=== PATIENT | male | born 1940 | race Caucasian/White ===

== ENCOUNTER 2017-06-19 05:11 | Day surgery (SDC) | payer MEDICARE, OTHER ==
[2017-06-15 14:14] LABS: HEMATOCRIT 43.8 % (42.0-54.0); HEMOGLOBIN 14.8 g/dL (13.5-17.5); MCH 32.5 pg (26.0-34.0); MCHC 33.8 g/dL (31.0-37.0); MCV 96.1 fL (80.0-100.0); MEAN PLATELET VOLUME 10.3 fL (7.4-10.4); RBC 4.56 10x6/uL (4.20-6.10); RDW 13.6 % (11.5-14.5)
[2017-06-15 14:22] LABS: CALCIUM 9.7 mg/dL (8.5-10.1); CARBON DIOXIDE 28.5 mmol/L (21.0-32.0); CREATININE - SERUM 1.7 mg/dL (0.6-1.3); POTASSIUM - SERUM 4.5 mmol/L (3.5-5.1)
[~2017-06-19 05:11] MED LIST: ASPIRIN EC81 M1 PO; HYZAAR 100-12.51 TAB PO
[2017-06-19 10:58] VITALS: BP 156/64; BMI 29.2
[2017-06-19] MEDS ORDERED: HYDROCODONE-APA1 TAB PO (14:36)
--- NOTE | 2017-06-19 14:47 | NUR ---
PT ARRIVED INTO PACU WITH VACOMYCIN 1MG IN 250NS HANGING PER ADRIANO.
--- NOTE | 2017-06-19 16:46 | OP ---
PATIENT NAME: LEANNE GORDON MEDICAL RECORD: [id number] :39 [facility] ADMISSION DATE: SURGEON: WAI KOENIG, BRITTNEY CAMPOS DATE OF OPERATION: 06/19/2017 PREOPERATIVE DIAGNOSES: 1. Rotator cuff tear of the left shoulder. 2. Impingement syndrome of the left shoulder. 3. Acromioclavicular arthritis of the left shoulder. POSTOPERATIVE DIAGNOSES: 1. Rotator cuff tear of the left shoulder. 2. Impingement syndrome of the left shoulder. 3. Acromioclavicular arthritis of the left shoulder. PROCEDURES: 1. Arthroscopic rotator cuff repair. 2. Arthroscopic distal clavicle excision done through separate incision -- 1 cm. 3. Arthroscopic subacromial decompression, acromioplasty and bursectomy. SURGEON: Brittney Carreno MD ANESTHESIA: General. INTRAOPERATIVE COMPLICATIONS: None. SUMMARY OF PATHOLOGIC FINDINGS: Consistent with the preoperative MRI, the patient had a full-thickness rotator cuff tear, downward sloping acromion with excoriation of the coracoacromial ligament as well as acromioclavicular arthritis. The patient did have some in situ biceps tendinitis; however, biceps tenodesis was not done. OPERATIVE SUMMARY IN DETAIL: After obtaining the appropriate preoperative orthopedic surgery consent as well as anesthetic consultation, evaluation and clearance, the patient was brought to the operating room and placed on the operating table in supine position. After general laryngeal mask was administered, the patient was placed in a right lateral decubitus position. All pressure points were well padded to include down leg peroneal nerve pad as well as axillary roll. The patient was held firmly to the operating table using the vacuum pack suction system. Left upper extremity and shoulder were then prepped and draped in a routine sterile fashion. The arm was held in the [employer] traction boom at 30 degrees of forward flexion, 30 degrees of abduction, 10 pounds of traction laterally. The arthroscopy was established in the glenohumeral joint from a posterior portal. Anterior portal was established in the anterior safe interval. Diagnostic arthroscopy did reveal the above findings. Attention was turned to the rotator cuff tear. Transrotator cuff portal was created. Rotator cuff footprint was decorticated and fibers of the torn rotator cuff were taken down with the arthroscopic resector. Having completed this, attention was turned to the subacromial space. While in the subacromial space, the [place] tissue ablation system was utilized to denude the undersurface of the acromion of all soft tissue elements. A 5-0 barrel bur was then used to perform acromioplasty at the level of acromioclavicular joint and then a 5-0 barrel bur was also used to perform a complete distal clavicle excision done through a separate incision for 1 cm. Having completed this, OPERATIVE REPORT [id number] LEANNE GORDON attention was then returned to the rotator cuff. Further decortication was carried out by further debridement of nonviable-appearing rotator cuff fibers. A #2 FiberTape was placed in an inverted mattress style fashion and then anchored laterally using a 5.5 SwiveLock from [employer]. Having completed this, arthroscopy portals were closed in a routine interrupted fashion using 4-0 Prolene. Sterile dressings were applied. The patient was awakened and taken to the recovery room in stable condition. All final needle and sponge counts were correct. TRANSINT:[id number] Voice Confirmation ID: [id number] DOCUMENT ID: [id number] WAI KOENIG, BRITTNEY CAMPOS at 1646 CC: [id number] DICTATION DATE: 06/19/17 1436 RV REPAIRER: 06/19/17 1619 [facility] 06/19/17 [id number] [place] [id number]
== END 2017-06-19 16:33 | disposition home or self-care (01) ==
LOC: D.OPS 05:11 → D.PAN 12:30 → D.OPS 16:33
PROVIDERS: Orthopaedic Surgery
DX: M75.102 Unspecified rotator cuff tear or rupture of left shoulder, not specified as traumatic (principal); M25.812 Other specified joint disorders, left shoulder; M19.012 Primary osteoarthritis, left shoulder; I10 Essential (primary) hypertension; Z01.812 Encounter for preprocedural laboratory examination

== ENCOUNTER → 2017-09-12 08:41 | Outpatient (CLI) | payer MEDICARE, OTHER ==
[~2017-09-12 08:41] MED LIST changes: +HYDROCODONE-APA1 TAB PO
== END | disposition home or self-care (01) ==
LOC: D.MRI 09-11 10:30
DX: M75.121 Complete rotator cuff tear or rupture of right shoulder, not specified as traumatic (principal)

== ENCOUNTER → 2018-07-03 09:17 | Outpatient (CLI) | payer MEDICARE, OTHER | END | disposition home or self-care (01) | LOC: D.RAD 09:17 | DX: R13.19 Other dysphagia (principal) ==

== ENCOUNTER → 2018-10-01 08:29 | Outpatient (CLI) | payer MEDICARE, OTHER | END | disposition home or self-care (01) | LOC: D.CT 08:29 | DX: R31.9 Hematuria, unspecified (principal) ==